=== PATIENT | male | born 1990 | race Caucasian/White ===

== ENCOUNTER 2017-10-16 13:57 | Emergency (ER) | payer BC, OTHER ==
[2017-10-16 14:16] VITALS: BP 144/100
[2017-10-16] MEDS ORDERED: methylPREDNISolone Sodium Succinate 125 MG/2 ML SDV IVPUSH ONE (14:31)
[2017-10-16] MEDS ORDERED: diphenhydrAMINE 50 MG/ML SDV IVPUSH ONE (14:34)
--- NOTE | 2017-10-16 14:34 | EDM.PDOC ---
ED HPI GENERAL MEDICAL PROBLEM - General Chief Complaint: ENT Problem Stated Complaint: ALLERGIC REACTION Time Seen by Provider: 10/16/17 14:05 Source of Information: Reports: Patient History Limitations: Reports: No Limitations - History of Present Illness INITIAL COMMENTS - FREE TEXT/NARRATIVE: HISTORY AND PHYSICAL: History of present illness: Patient is a 27-year-old male who presents to the emergency room today with complaints of sinus pressure, sore throat and soft tissue swelling of the uvula. He states he has had sinus pressure and a sore throat for one week. States he took a Claritin today and woke up from a nap with willing to his uvula. He denies any fever, chills, chest pain or shortness of breath. Review of systems: As per history of present illness and below otherwise all systems reviewed and negative. Past medical history: As per history of present illness and as reviewed below otherwise noncontributory. Surgical history: As per history of present illness and as reviewed below otherwise noncontributory. Social history: No reported history of drug or alcohol abuse. Family history: As per history of present illness and as reviewed below otherwise noncontributory. Physical exam: General: Well-developed and well-nourished 27-year-old male. Alert and oriented. Nontoxic appearing and in no acute distress. HEENT: Atraumatic, normocephalic, pupils equal and reactive bilaterally, negative for conjunctival pallor or scleral icterus, mucous membranes moist, tenderness to the maxillary sinuses bilaterally, erythema noted to the posterior oropharynx without exudate, elongation of the uvula (no erythema or swelling), no pill or shifting or fullness, neck supple, nontender, trachea midline. No drooling or trismus noted. No meningeal signs Lungs: Clear to auscultation, breath sounds equal bilaterally, chest nontender. Heart: S1S2, regular rate and rhythm without overt murmur Abdomen: Soft, nondistended, nontender. Negative for masses or hepatosplenomegaly. Negative for costovertebral tenderness. Pelvis: Stable nontender. Genitourinary: Deferred. Rectal: Deferred. Skin: Intact, warm, dry. No lesions or rashes noted. Extremities: Atraumatic, negative for cords or calf pain. Neurovascular unremarkable. Neuro: Awake, alert, oriented. Cranial nerves II through XII unremarkable. Cerebellum unremarkable. Motor and sensory unremarkable throughout. Exam nonfocal. Notes: Patient's uvula is elongated but there is no tonsillar wall swelling or fullness. Vital signs are stable. She does feel better post-therapeutics. Home with prescription for Augmentin. We discussed appropriate follow-up with ear nose and throat as he needs further evaluation and management of this. Understanding and is agreeable to plan of care. He denies any further questions or concerns. Diagnostics: CBC, CMP Therapeutics: IV fluid, Benadryl, Solu-Medrol Impression: Sinusitis Plan: 1. These take Benadryl as directed over the next 2-3 days. Prescriptions as prescribed. 2. Follow-up with ENT in the next 1-2 days. Return to the ED as needed and as discussed. Definitive disposition and diagnosis as appropriate pending reevaluation and review of above. Throat Pain Score (Numeric/FACES): 4 - Related Data Allergies Allergy/AdvReac Type Severity Reaction Status Date / Time No Known Allergies Allergy Verified 10/16/17 14:12 Home Meds: Home Meds . [No Known Home Meds] 09/16/13 [History] Past Medical History Psychiatric History: Reports: ADHD, Other (See Below) Other Psychiatric History: ADHD as a child - Past Surgical History HEENT Surgical History: Reports: Myringotomy w Tube(s) Other HEENT Surgeries/Procedures: addenoidectomy Other Musculoskeletal Surgeries/Procedures:: broken pelvis, broken back Social & Family History - Family History Family Medical History: Noncontributory - Tobacco Use Smoking Status *Q: Current Every Day Smoker Years of Tobacco use: 1 Packs/Tins Daily: 0.5 Used Tobacco, but Quit: Yes Month/Year Tobacco Last Used: 12 Second Hand Smoke Exposure: No - Caffeine Use Caffeine Use: Reports: Soda - Alcohol Use Days Per Week of Alcohol Use: 3 Number of Drinks Per Day: 4 Total Drinks Per Week: 12 - Recreational Drug Use Recreational Drug Use: No Drug Use in Last 12 Months: Yes Recreational Drug Type: Reports: Marijuana/Hashish Recreational Drug Use Frequency: Daily Recreational Drug Last Use: 09/16/13 ED ROS ENT - Review of Systems Review Of Systems: ROS reveals no pertinent complaints other than HPI. ED EXAM, ENT - Physical Exam Exam: See Below (See dictation) Course - Vital Signs Last Recorded V/S: Last Vital Signs Temp 98.2 F 10/16/17 14:07 Pulse 86 10/16/17 14:07 Resp 16 10/16/17 14:07 BP 144/100 H 10/16/17 14:07 Pulse Ox 97 10/16/17 14:07 - Orders/Labs/Meds Labs: Laboratory Tests 10/16/17 10/16/17 Range/Units 14:35 14:35 WBC 12.49 H (4.0-11.0) K/uL RBC 5.13 (4.50-5.90) M/uL Hgb 15.7 (13.0-17.0) g/dL Hct 44.1 (38.0-50.0) % MCV 86.0 (80.0-98.0) fL MCH 30.6 (27.0-32.0) pg MCHC 35.6 (31.0-37.0) g/dL RDW Std Deviation 42.6 (28.0-62.0) fl RDW Coeff of Frida 14 (11.0-15.0) % Plt Count 153 (150-400) K/uL MPV 10.20 (7.40-12.00) fL Neut % (Auto) 73.4 (48.0-80.0) % Lymph % (Auto) 15.5 L (16.0-40.0) % [place] % (Auto) 8.9 (0.0-15.0) % Eos % (Auto) 2.0 (0.0-7.0) % Baso % (Auto) 0.2 (0.0-1.5) % Neut # (Auto) 9.2 H (1.4-5.7) K/uL Lymph # (Auto) 1.9 (0.6-2.4) K/uL P[place] # (Auto) 1.1 H (0.0-0.8) K/uL Eos # (Auto) 0.3 (0.0-0.7) K/uL Baso # (Auto) 0.0 (0.0-0.1) K/uL Nucleated RBC % 0.0 /100WBC Nucleated RBCs # 0 K/uL Sodium 137 (136-148) mmol/L Potassium 3.9 (3.5-5.1) mmol/L Chloride 104 (98-107) mmol/L Carbon Dioxide 24.3 (21.0-32.0) mmol/L BUN 10 (7.0-18.0) mg/dL Creatinine 1.0 (0.8-1.3) mg/dL Est Cr Clr Drug Dosing 119.63 mL/min Estimated GFR (MDRD) > 60.0 ml/min Glucose 94 (74-106) mg/dL Calcium 9.5 (8.5-10.1) mg/dL Total Bilirubin 0.8 (0.2-1.0) mg/dL AST 18 (15-37) IU/L ALT 33 (14-63) IU/L Alkaline Phosphatase 62 (46-116) U/L Total Protein 8.0 (6.4-8.2) g/dL Albumin 4.0 (3.4-5.0) g/dL Globulin 4.0 H (2.0-3.5) g/dL Albumin/Globulin Ratio 1.0 L (1.3-2.8) Meds: Medications Discontinued Medications Generic Name Dose Route Start Last Admin Trade Name Aubrey PRN Reason Stop Dose Admin Ceftriaxone Sodium Confirm 10/16/17 15:46 Rocephin Administered 10/16/17 15:47 Dose 1,000 mg .ROUTE .STK-MED ONE Diphenhydramine HCl 50 mg 10/16/17 14:34 10/16/17 14:42 Benadryl IVPUSH 10/16/17 14:35 50 mg ONETIME ONE Administration Sodium Chloride 500 mls @ 999 mls/hr 10/16/17 14:45 10/16/17 14:37 Normal Saline IV 999 mls/hr STAT RADHA Administration Sodium Chloride Confirm 10/16/17 15:48 Normal Saline Administered 10/16/17 15:49 Dose 50 mls @ as directed .ROUTE .STK-MED ONE Methylprednisolone Sodium Succinate 125 mg 10/16/17 14:31 10/16/17 14:45 Solu-Medrol IVPUSH 10/16/17 14:32 125 mg ONETIME ONE Administration Departure - Departure Time of Disposition: 17:00 Disposition: Home, Self-Care 01 Clinical Impression: Sinusitis Qualifiers: Sinusitis location: frontal Chronicity: acute Recurrence: non-recurrent Qualified Code(s): J01.10 - Acute frontal sinusitis, unspecified - Discharge Information Instructions: Sinusitis, Adult, [id number] Referrals: Ruddy Lanza MD [Primary Care Provider] - Forms: ED Department Discharge Additional Instructions: The following information is given to patients seen in the emergency department who are being discharged to home. This information is to outline your options for follow-up care. We provide all patients seen in our emergency department with a follow-up referral. The need for follow-up, as well as the timing and circumstances, are variable depending upon the specifics of your emergency department visit. If you don't have a primary care physician on staff, we will provide you with a referral. We always advise you to contact your personal physician following an emergency department visit to inform them of the circumstance of the visit and for follow-up with them and/or the need for any referrals to a consulting specialist. The emergency department will also refer you to a specialist when appropriate. This referral assures that you have the opportunity for follow-up care with a specialist. All of these measure are taken in an effort to provide you with optimal care, which includes your follow-up. Under all circumstances we always encourage you to contact your private physician who remains a resource for coordinating your care. When calling for follow-up care, please make the office aware that this follow-up is from your recent emergency room visit. If for any reason you are refused follow-up, please contact the [facility] Emergency Department at and asked to speak to the emergency department charge nurse. [facility] [address] [place] [id number] 1. These take Benadryl as directed over the next 2-3 days. 2. Prescriptions as prescribed. 3. Follow-up with ENT in the next 1-2 days. Return to the ED as needed and as discussed.
[2017-10-16] MEDS ORDERED: Sodium Chloride 0.9% 500 ML IV SCH (14:45)
[2017-10-16] MEDS ORDERED: cefTRIAXone 1,000 MG VIAL ONE (15:46)
[2017-10-16] MEDS ORDERED: Sodium Chloride 0.9% 0 ML ONE (15:48)
[2017-10-17 07:19] LABS: CHLORIDE,CL 104 mmol/L (98-107); SODIUM,NA 137 mmol/L (136-148)
== END 2017-10-16 16:45 | disposition home or self-care (01) ==
LOC: MW.ED 13:57
DX: J01.10 Acute frontal sinusitis, unspecified (principal); F17.210 Nicotine dependence, cigarettes, uncomplicated
CPT/HCPCS: 36415; 80053; 85025; 96361; 96365; 96375; 99283; J1200; J2930; J7040

== ENCOUNTER 2020-07-04 11:51 | Emergency (ER) | payer BC, OTHER ==
[2020-07-04] MEDS ORDERED: Sodium Chloride 0.9% 2.5 ML Syringe FLUSH PRN (11:52)
[2020-07-04] MEDS ORDERED: Sodium Chloride 0.9% 10 ML Syringe FLUSH PRN (11:52)
[2020-07-04] MEDS ORDERED: ceFAZolin 1 GM in Premix Bag 1 BAG IV ONE (11:52)
[2020-07-04] MEDS ORDERED: Bupivacaine 0.5% 10 ML SDV ONE (11:57)
[2020-07-04] MEDS ORDERED: Bupivacaine 0.5% 10 ML SDV INJECT ONE (12:07)
[2020-07-04] MEDS ORDERED: Morphine 4 MG/ML Syringe ONE (12:10)
[2020-07-04] MEDS ORDERED: Morphine 4 MG/ML Syringe IVPUSH ONE (12:10)
[2020-07-04 12:35] LABS: BLOOD UREA NITROGEN,BUN 13 mg/dL (7.0-18.0); CARBON DIOXIDE,CO2 23.1 mmol/L (21.0-32.0); CHLORIDE,CL 105 mmol/L (98-107); GLUCOSE RANDOM 123 mg/dL (74-106); POTASSIUM,K 3.7 mmol/L (3.5-5.1); SODIUM,NA 142 mmol/L (136-148)
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
--- NOTE | 2020-07-04 12:47 | CR ---
HISTORY: Crushing injury of the right hand. COMPARISON: None. FINDINGS: Acute nondisplaced fracture proximal diaphysis proximal phalanx of the second finger. Comminuted displaced fracture distal aspect proximal phalanx of the thumb, with fragment protruding through the skin. Nondisplaced corner fracture base of the proximal phalanx of the thumb. Soft tissue swelling of the hand. Dictated by Taryn Hinson MD @ Jul 04 2020 12:38PM Signed by Dr. Taryn Hinson @ Jul 04 2020 12:45PM
[2020-07-04] MEDS ORDERED: Sodium Chloride 0.9% 1,000 ML IV ONE (12:57)
[2020-07-04] MEDS ORDERED: Lactated Ringers 1,000 ML IV SCH (13:00)
[2020-07-04 19:38] VITALS: BP 174/100; PULSE 86
== END 2020-07-04 13:14 ==
LOC: MW.ED 11:51
DX: S62.640A Nondisplaced fracture of proximal phalanx of right index finger, initial encounter for closed fracture (principal); S62.521B Displaced fracture of distal phalanx of right thumb, initial encounter for open fracture; S62.514A Nondisplaced fracture of proximal phalanx of right thumb, initial encounter for closed fracture; W23.0XXA Caught, crushed, jammed, or pinched between moving objects, initial encounter
CPT/HCPCS: 36415; 64450; 73130; 80048; 85025; 85610; 96365; 96375; 99285; J0690; J2270; J3490; J7120; 29131; 99284